=== PATIENT | female | born 1980 | race Two or more races ===

== ENCOUNTER → 2017-10-25 | Outpatient (CLI) | payer OTHER | LOC: FIMAGING 08:33 | PROVIDERS: ATTEND Orthopaedic Surgery Sports Medicine | DX: M50.10 Cervical disc disorder with radiculopathy, unspecified cervical region (principal); M50.30 Other cervical disc degeneration, unspecified cervical region ==

== ENCOUNTER → 2017-12-17 | Outpatient (CLI) | payer OTHER | LOC: FIMAGING 08:26 | PROVIDERS: ATTEND Orthopaedic Surgery Sports Medicine | DX: M25.561 Pain in right knee (principal) ==

== ENCOUNTER 2018-01-04 12:02 | Day surgery (SDC) | payer OTHER ==
[2018-01-04] MEDS ORDERED: IOPAMIDOL (ISOVUE-M 300) 15 ML VIAL ONE (13:00)
[2018-01-04] MEDS ORDERED: DEPO METHYLPREDNISOLONE 40 MG/ML SDV ONE (13:00)
[2018-01-04] MEDS ORDERED: BUPIVACAINE 0.5% 30 ML SDV ONE (13:01)
[2018-01-04] MEDS ORDERED: MIDAZOLAM 2 MG/2 ML VIAL IVP PRN (13:29)
[2018-01-04] MEDS ORDERED: fentaNYL 100 MCG/2 ML INJ IVP PRN (13:29)
[2018-01-04] MEDS ORDERED: FLUMAZENIL 0.5 MG/5 ML MDV IVP PRN (13:29)
[2018-01-04] MEDS ORDERED: NALOXONE HCL 0.4 MG/ML INJ IVP PRN (13:29)
[2018-01-04] MEDS ORDERED: NS 1,000 ML IV SCH (13:30)
--- NOTE | 2018-01-04 14:30 | PDPROPOC ---
Sedation Plan of Care Sedation Plan of Care: vital signs stable, mental status noted, patient educated of risks, benefits, alternatives, patient can tolerate sedation ASA Classification: ASA 1 Planned drugs: fentanyl, midazolam Mallampati Score: Class 2 Mallampati Reference Image: Patient passed 3-3-2 rule?: Yes
--- NOTE | 2018-01-04 14:32 | PDGENHP ---
History & Physical Chief Complaint: NECK PAIIN History of Present Illness: NECK PAIN WITH RT ARM RADICULOPATHY. Pertinent Past, Social, Family History: OVARIAN CYSTECTOMY, COLONSCOPY, INGUINAL HERNIA, WISDOM TEETH Relevant Physical Exam: ALL FINGERS INVOVED WITH PAIN,. 09/11 Cardiorespiratory Assessment: RRR, CTA
[2018-01-04] MEDS ORDERED: ONDANSETRON 4 MG/2 ML VIAL IVP PRN (15:24)
--- NOTE | 2018-01-04 15:25 | PDRADPN ---
Radiology Procedure Note Date of Procedure: 01/04/18 Radiologist: Jaon Hodge Anesthesia: IV Sedation Pre-op Diagnosis: NECK PAIN Post-op Diagnosis: SAME Indication: PAIN Procedure: C/S BI Inf/Abcess present in the surg proc area at time of surgery?: No
[2018-01-04] MEDS ORDERED: TRIAMCINOLONE ACETONIDE 200 MG/5 ML MDV IM ONE (15:27)
[2018-01-04 16:52] VITALS: BP 92/74
== END 2018-01-04 16:43 | disposition home or self-care (01) ==
LOC: FIMAGING 12:02
PROVIDERS: ATTEND Physical Medicine & Rehabilitation
PROC: 3E0U33Z Introduction of Anti-inflammatory into Joints, Percutaneous Approach (ICD-10-PCS; principal; 2018-01-04 15:37)
PROC: 3E0S33Z Introduction of Anti-inflammatory into Epidural Space, Percutaneous Approach (ICD-10-PCS; principal; 2018-01-04 15:37)
PROC: 3E0S3BZ Introduction of Anesthetic Agent into Epidural Space, Percutaneous Approach (ICD-10-PCS; principal; 2018-01-04 15:37)
DX: M54.12 Radiculopathy, cervical region (principal)
CPT/HCPCS: J1030; J2250; J2310; J3010; J3301; Q9967

== ENCOUNTER 2018-04-06 05:26 | Observation (INO) | payer OTHER ==
[2018-04-06] MEDS ORDERED: NS 1,000 ML IV ONE ×2 (05:28→05:46)
--- NOTE | 2018-04-06 05:32 | EDPHY ---
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 Lightheaded. Palpitations, Patient states that she has been feeling somewhat unwell for the past week however for the past few hours she has had increasing shortness of breath, fatigued, lightheaded. Palptiations . Denies any emergency room tachycardic in the 161 to 170s, hypertensive, tachypneic, labored breathing somewhat in distress. She was placed into ER room 3. She gave consent for treatment and registration. Upon evaluation ER room 3 she is tachypneic, in the 30s, tachycardic in the 160s , and hypertensive 180s. No history of panic or anxiety. Denies chest pain. Does states she can't catch her breath. Appears anxious. Somewhat hyperventilating. Complains of tingling in her fingers bilaterally. Past Medical History: Hyperlipidemia Past Surgical History: No recent surgery Social History: Denies drugs alcohol tobacco. 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 Family History: Noncontributory ROS REVIEW OF SYSTEMS: 10 Systems were reviewed and negative with the exception of the elements mentioned in the history of present illness. Exam Constitutional hyperventilating, triage nursing summary reviewed, vital signs reviewed, awake/alert. Tachycardic, hyperventilating, tachypneic. Hypertensive. Eyes normal conjunctivae and sclera, EOMI, PERRLA. HENT normal inspection, atraumatic, moist mucus membranes, no epistaxis, neck supple/ no meningismus, no raccoon eyes. Respiratory clear to auscultation bilaterally, normal breath sounds, no respiratory distress, no wheezing. Cardiovascular tachycardia regular rhythm, no murmur, no edema, distal pulses normal. Gastrointestinal soft, non-tender, no rebound, no guarding, normal bowel sounds, no distension, no pulsatile mass. Genitourinary no CVA tenderness. Musculoskeletal no midline vertebral tenderness, full range of motion, no calf swelling, no tenderness of extremities, no meningismus, good pulses, neurovascularly intact. Skin pink, warm, & dry, no rash, skin atraumatic. Neurologic awake, alert and oriented x 3, AAOx3, moves all 4 extremities equally, motor intact, sensory intact, CN II-XII intact, normal cerebellar, normal vision, normal speech. Psychiatric normal mood/affect. Heme/Lymph/Immune no lymphadenopathy. Differential Diagnosis: Includes but is not limited to in a particular order pulmonary embolism, pneumonia, SVT, viral illness, URI, pneumothorax, ACS, cardiac arrhythmia, anxiety attack, panic attack Medical Decision Making: Plan for this patient IV establishment with IV fluid bolus 2 L, pvc monitor, EKG, troponin, D-dimer, chest x-ray Re-evaluation: EKG interpretation by me on record in [facility] system. Impression time of EKG 5:30 a.m. Sinus tach 103 LVH. T-wave abnormality to [address] elevation. ED x-ray chest one view: Negative for acute cardiopulmonary disease. 0600AM: Patient re-evaluated feeling much better after 1 mg IV Ativan. D-dimer negative. Trop negative. 0610: Patient getting IV fluids on pvc monitor. Heart rate in the 80s. Blood pressure 155/115. 0659: Plan for this patient is to be admitted. I have ordered an echocardiogram, TSH. Dr. Garrett has been consulted for admission. Patient re-evaluated 7:00 a.m. Still complains that she does not feel well. Is not noted that she is hypertensive 160/111. Patient agrees on admission. Admit to PCU. Echo ordered TSH ordered Dr. Garrett consult for admission. Source: Patient - Medical/Surgical History Hx Diabetes: No - Social History Smoking Status: Never smoked Constitutional: Initial Vital Signs O2 Sat (%) 100 04/06/18 05:28 O2 Delivery Mode Room Air O2 (L/minute) 2 Allergies/Adverse Reactions: azithromycin Allergy (Verified 04/06/18 05:38) Rash doxycycline Allergy (Unverified 04/06/18 05:38) Other-Enter Comments Home Medications: Medication Instructions Recorded Calcium 1,000 mg PO DAILY 01/03/18 Fish Oil 1,360 mg Softgel 1,400 mg PO DAILY 01/03/18 1 tab PO DAILY 01/03/18 Red Yeast Rice 1 tab PO DAILY 01/03/18 Tylenol 1,000 mg PO PRN PRN 01/03/18 Vitamin B Complex 1 tab PO DAILY 01/03/18 Vitamin D3 5,000 iunits PO DAILY 01/03/18 Zofran 4 mg PO PRN PRN 01/03/18 Medical Decision Making - Data Points Laboratory Results: Laboratory Results 04/06/18 05:32 04/06/18 05:32 04/06/18 04/06/18 04/06/18 05:38 05:32 05:32 WBC RBC Hgb Hct MCV MCH MCHC RDW Plt Count MPV Neut % (Auto) Lymph % (Auto) Ceiba % (Auto) Eos % (Auto) Baso % (Auto) Nucleat RBC Rel Count Absolute Neuts (auto) Absolute Lymphs (auto) Absolute Monos (auto) Absolute Eos (auto) Absolute Basos (auto) Absolute Nucleated RBC Immature Gran % Seg Neutrophils % Band Neutrophils % Lymphocytes % Monocytes % Eosinophils % Basophils % Metamyelocytes % Myelocytes % Promyelocytes % Blast Cells % Immature Gran # Absolute Seg Neuts Absolute Band Neuts Absolute Lymphocytes Absolute Monocytes Absolute Eosinophils Absolute Basophils Absolute Metamyelocyte Absolute Myelocytes Absolute Promyelocytes Absolute Plasma Cells Differential Comment RBC/WBC/PLT Morphology Absolute Blast Cells Plasma Cells % Platelet Estimate PT INR APTT D-Dimer Sodium Potassium Chloride Carbon Dioxide Anion Gap BUN Creatinine Estimated GFR Glucose Calcium Magnesium Total Bilirubin Conjugated Bilirubin Unconjugated Bilirubin AST ALT Alkaline Phosphatase POC Troponin I 0.01 ng/mL ng/mL (0.00-0.08) NT-Pro-B Natriuret Pep Total Protein Albumin Lipase TSH Pending Beta HCG, Qual NEGATIVE 04/06/18 04/06/18 04/06/18 05:32 05:32 05:32 WBC 11.52 10^3/uL H 10^3/uL (3.80-9.50) RBC 5.11 10^6/uL 10^6/uL (4.18-5.33) Hgb 16.3 g/dL g/dL (12.6-16.3) Hct 45.1 % % (38.0-47.0) MCV 88.3 fL fL (81.5-99.8) MCH 31.9 pg pg (27.9-34.1) MCHC 36.1 g/dL g/dL (32.4-36.7) RDW 12.6 % % (11.5-15.2) Plt Count 335 10^3/uL 10^3/uL (150-400) MPV 9.3 fL fL (8.7-11.7) Neut % (Auto) Not Reported Lymph % (Auto) Not Reported Ceiba % (Auto) Not Reported Eos % (Auto) Not Reported Baso % (Auto) Not Reported Nucleat RBC Rel Count Not Reported Absolute Neuts (auto) Not Reported Absolute Lymphs (auto) Not Reported Absolute Monos (auto) Not Reported Absolute Eos (auto) Not Reported Absolute Basos (auto) Not Reported Absolute Nucleated RBC Not Reported Immature Gran % Not Reported Seg Neutrophils % 51.0 % % Band Neutrophils % 0.0 % % Lymphocytes % 40.0 % % Monocytes % 9.0 % % Eosinophils % 0.0 % % Basophils % 0.0 % % Metamyelocytes % 0.0 % % Myelocytes % 0.0 % % Promyelocytes % 0.0 % % Blast Cells % 0.0 % % Immature Gran # Not Reported Absolute Seg Neuts 5.88 10^3/uL 10^3/uL (1.70-6.50) Absolute Band Neuts 0.00 10^3/uL 10^3/uL (0.00-0.70) Absolute Lymphocytes 4.61 10^3/uL H 10^3/uL (1.00-3.00) Absolute Monocytes 1.04 10^3/uL H 10^3/uL (0.30-0.80) Absolute Eosinophils 0.00 10^3/uL L 10^3/uL (0.03-0.40) Absolute Basophils 0.00 10^3/uL L 10^3/uL (0.02-0.10) Absolute Metamyelocyte 0.00 10^3/mL 10^3/mL (0.00-0.00) Absolute Myelocytes 0.00 10^3/mL 10^3/mL (0.00-0.00) Absolute Promyelocytes 0.00 10^3/uL 10^3/uL (0.00-0.00) Absolute Plasma Cells 0.00 10^3/uL 10^3/uL (0.00-0.00) Differential Comment RBC/WBC/PLT Morphology NORMAL (NORMAL) Absolute Blast Cells 0.00 10^3/uL 10^3/uL (0.00-0.00) Plasma Cells % 0.0 % % Platelet Estimate ADEQUATE (ADEQ) PT 11.9 SEC L SEC (12.0-15.0) INR 0.86 (0.83-1.16) APTT 26.3 SEC SEC (23.0-38.0) D-Dimer 0.41 ug/mLFEU ug/mLFEU (0.00-0.50) Sodium 138 mEq/L mEq/L (135-145) Potassium 3.6 mEq/L mEq/L (3.5-5.2) Chloride 105 mEq/L mEq/L (97-110) Carbon Dioxide 22 mEq/l mEq/l (22-31) Anion Gap 11 mEq/L mEq/L (6-14) BUN 11 mg/dL mg/dL (7-23) Creatinine 0.8 mg/dL mg/dL (0.6-1.0) Estimated GFR > 60 Glucose 103 mg/dL H mg/dL (70-100) Calcium 9.5 mg/dL mg/dL (8.5-10.4) Magnesium 2.0 mg/dL mg/dL (1.6-2.3) Total Bilirubin 0.4 mg/dL mg/dL (0.1-1.4) Conjugated Bilirubin 0.2 mg/dL mg/dL (0.0-0.5) Unconjugated Bilirubin 0.2 mg/dL mg/dL (0.0-1.1) AST 23 IU/L IU/L (14-46) ALT 25 IU/L IU/L (9-52) Alkaline Phosphatase 78 IU/L IU/L (38-126) POC Troponin I NT-Pro-B Natriuret Pep < 11 pg/mL pg/mL (0-125) Total Protein 8.1 g/dL g/dL (6.3-8.2) Albumin 4.7 g/dL g/dL (3.5-5.0) Lipase 254 IU/L IU/L (23-300) TSH Beta HCG, Qual Medications Given: Discontinued Medications Sodium Chloride (Ns) 1,000 mls @ 0 mls/hr IV EDNOW ONE; Wide Open PRN Reason: Protocol Stop: 04/06/18 05:29 Last Admin: 04/06/18 05:37 Dose: 1,000 mls Sodium Chloride (Ns) 1,000 mls @ 0 mls/hr IV EDNOW ONE; Wide Open PRN Reason: Protocol Stop: 04/06/18 05:47 Last Admin: 04/06/18 05:47 Dose: 1,000 mls Lorazepam (Ativan Injection) 1 mg IVP EDNOW ONE Stop: 04/06/18 05:37 Last Admin: 04/06/18 05:47 Dose: 1 mg Ondansetron HCl (Zofran) 4 mg IVP EDNOW ONE Stop: 04/06/18 06:35 Last Admin: 04/06/18 06:36 Dose: 4 mg Point of Care Test Results: Chemistry 04/06/18 05:38 POC Troponin I 0.01 ng/mL ng/mL (0.00-0.08) Departure - Departure Disposition: [facility] Acute Clinical Impression: Shortness of breath, Hypertension, Tachycardia Condition: Fair
[2018-04-06] MEDS ORDERED: LORazepam 2 MG/ML INJ ONE (05:34)
[2018-04-06] MEDS ORDERED: LORazepam 2 MG/ML INJ IVP ONE (05:36)
[2018-04-06 05:42] LABS: PLATELET COUNT 335 10^3/uL (150-400)
[2018-04-06 05:50] LABS: INR 0.86 (0.83-1.16); PROTIME(PATIENT) 11.9 SEC (12.0-15.0)
[2018-04-06] MEDS ORDERED: ONDANSETRON 4 MG/2 ML VIAL IVP ONE (06:34)
[2018-04-06] MEDS ORDERED: ONDANSETRON 4 MG/2 ML VIAL ONE (06:34)
[2018-04-06] MEDS ORDERED: LORazepam 2 MG/ML INJ IVP PRN (07:06)
[2018-04-06] MEDS ORDERED: FAMOTIDINE 20 MG TAB PO ONE (07:06)
[2018-04-06] MEDS ORDERED: ONDANSETRON DISINTEGRATING 4 MG TAB PO PRN (07:09)
--- NOTE | 2018-04-06 07:50 | GHP ---
DATE OF ADMISSION: 04/06/2018 CHIEF COMPLAINT: Shortness of breath, tachycardia. HISTORY OF PRESENT ILLNESS: A 37-year-old female with no significant past medical history presented to the ER with shortness of breath. 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 She became so winded that she had to sit down in a marisol r here in the emergency room. For the past week she has felt dizzy with intermittent lightheadedness and palpitations. Very exhausted to the point where she could pass out the minute she hit the pillow . She notes over the last 2-3 days that the lightheadedness has been constant. Her blood pressures were elevated here in the ER, 180/150 and associated with that was nausea and tight squeezing chest p ressure substernally. There was no radiation. Denies infectious symptoms including fevers, chills, or sweats. No nausea, vomiting, or diarrhea. O f note, in February had a heavy period lasting a month, but saw her cloth calender and was provided a p rogesterone taper. She has not had a heavy cycle this month. No new medication. She is not taking any caffeine supplementations. REVIEW OF SYSTEMS: I completed a 10-point review of system and is negative except as noted HPI. PAST MEDICAL HISTORY: Cervical stenosis, hyperlipidemia. PAST SURGICAL HISTORY: Bilateral robotic ovarian cystectomy, hernia repair as a child. FAMILY HISTORY: Mother with stent at age 71, hypertension. Father with Graves disease, prostate can cer. MEDICATIONS: Zofran, vitamin D, vitamin B, Tylenol, red yeast rice, vitamin, fish oil. calc ium. ALLERGIES: Azithromycin, doxycycline. PHYSICAL EXAMINATION: VITAL SIGNS: Temperature 36.7, blood pressure initially 181/150, heart rate i n the 160s, now is 76, blood pressure now 140/90. GENERAL: Lying in bed, fatigued, mildly pale, no acute distress. HEENT: PERRLA. Moist mucous membranes. CARDIOVASCULAR: Regularly irregular, no mu rmur. LUNGS: Clear. No crackles or wheezing. ABDOMEN: Soft, nontender. : No suprapubic or CV A tenderness. SKIN: Warm and dry. NEURO: 2 through 12 intact. PSYCH: Alert and oriented x3. LABORATORY DATA: 1. WBC 138, potassium 3.6, chloride 105 carbon dioxide 22, anion gap 11, creatinine 0.8, glucose 103 , calcium 9.5. LFTs within normal. BNP 11. Troponin 0.01. Lipase negative. Negative . D-dimer is negative. WBC 11, hemoglobin 16, hematocrit 45, platelets are 335. 2. Chest x-ray is personally reviewed by me. No opacity or effusion. 3. EKG personally reviewed by me. LVH, biphasic T-waves anterior leads which resolved on repeat EKG . T-wave inversions in leads 3. ASSESSMENT AND PLAN: 1. Tachyarrhythmia: Has been symptomatic for the past week. We will monitor in the PCU on telemetr y. Check a TSH. Cycle troponins. Has a negative D-dimer. Obtain an echocardiogram and cardiology consult. 2. Shortness of breath: This is in the setting of tachycardia. Chest x-ray clear. No infectious s ymptoms. Symptoms resolved now. 3. Mild leukocytosis: Stress reaction. We will hydrate and repeat. 4. Deep venous thrombosis prophylaxis. Low risk, ambulatory. 5. Diet: Regular. DISPOSITION: Warrants observation admission in the PCU for telemetry, echocardiogram and Cardiology consult. /[id number]/MODL
--- NOTE | 2018-04-06 07:51 | CPEKG ---
Test Reason : OPEN Blood Pressure : / mmHG Vent. Rate : 087 BPM Atrial Rate : 085 BPM P-R Int : 155 ms QRS Dur : 094 ms QT Int : 367 ms P-R-T Axes : 028 010 -19 degrees QTc Int : 442 ms Sinus rhythm Confirmed by Jose Caal ([id number]) on 04/06/2018 7:51:00 AM Referred By: Confirmed By:Jose Caal
--- NOTE | 2018-04-06 07:51 | CPEKG ---
Test Reason : OPEN Blood Pressure : / mmHG Vent. Rate : 103 BPM Atrial Rate : 104 BPM P-R Int : 163 ms QRS Dur : 100 ms QT Int : 354 ms P-R-T Axes : 034 012 -18 degrees QTc Int : 464 ms Sinus tachycardia Left atrial enlargement Left ventricular hypertrophy Borderline T abnormalities, inferior leads Confirmed by Jose Caal ([id number]) on 04/06/2018 7:50:59 AM Referred By: Confirmed By:Jose Caal
--- NOTE | 2018-04-06 08:27 | ECHO ---
[email or web address] [address] Main: [phone] Fax: [email or web address] Echocardiogram Name: HASMUKH PINTO MR#: [id number] Study Date: 04/06/2018 Study Time: 07:16 AM Date of : 1980 Age: 37 year(s) Height: 167.6 cm (66 in.) Weight: 81.65 kg (180 lb.) BSA: 1.91 m2 Gender: Female Examination: Echo Indication: Tachycardia, HTN Crisis, Chest Pain Image Quality: Contrast: Requested by: Jose Guillen BP: 140 mmHg/59 mmHg Heart Rate: Rhythm: Sinus tachycardia Indication: Tachycardia, HTN Crisis, Chest Pain 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 No LV hypertrophy. Normal global systolic LV function. EF is 60 %. No regional wall motion abnormality. Normal size right ventricle. The left atrium is normal in size. The right atrium is normal in size. There is no mitral valve regurgitation. The aortic valve is normal in appearance and function. The aortic valve is tri-leaflet. The tricuspid valve is normal in appearance and function. There is no pulmonic regurgitation seen. The blood pressure was elevated in the 200's upon admission. The heart rated was in the 150's range with some chest pain. . Measurements: Chambers Valvular Assessment AV/MV Valvular Assessment TV/PV Normal Normal Normal Name Value Range Name Value Range Name Value Range Ao Ameena (MM): 2.9 cm (2.2 cm-3.7 AV Vmax: 1.32 m/s (1 m/s-1.7 TR Vmax: 2.21 mm/s ( - ) cm) m/s) TR PGmax: 20 mmHg ( - ) IVSd (2D): 0.7 cm (0.6 cm-1.1 AV maxP mmHg ( - ) syst. PAP: 25 mmHg ( - ) cm) LVOT Vmax: 0.89 m/s (0.7 m/s-1.1 PV Vmax: 0.92 m/s (0.6 m/s-0.9 LVDd (2D): 4.3 cm (3.9 cm-5.3 m/s) m/s) cm) MV E Vmax: 0.76 m/s ( - ) PV PGmax: 3 mmHg ( - ) LVDs (2D): 2.9 cm (2.1 cm-4 MV A Vmax: 0.60 m/s ( - ) cm) MV E/A: 1.27 ( - ) LVPWd (2D): 0.9 cm ( - ) LVEF (2D): 60 (>=54 %) Patient: HASMUKH PINTO Study Date: 04/06/2018 Page 1 of 2 07:16 AM Continued Measurements: Chambers Valvular Assessment AV/MV Valvular Assessment TV/PV Name Value Name Value Name Value LADs Lon.4 cm MV E/E' Septal: 14.10 CVP (est.): 5 mmHg LA Area: 12.8 cm2 MV E/E' Lateral: 9.20 Findings: Left Ventricle: Normal size left ventricle. No LV hypertrophy. Normal global systolic LV function. EF is 60 %. No regional wall motion abnormality. Diastolic dysfunction is present. . Right Ventricle: Normal size right ventricle. Normal RV function. Left Atrium: The left atrium is normal in size. Right Atrium: The right atrium is normal in size. Mitral Valve: The mitral valve is normal in appearance and function. There is no mitral valve regurgitation. Aortic Valve: The aortic valve is normal in appearance and function. The aortic valve is tri-leaflet. There is no aortic valve regurgitation. No aortic valve stenosis is present. Tricuspid Valve: The tricuspid valve is normal in appearance and function. Pulmonic Valve: The pulmonic valve is normal in appearance and function. There is no pulmonic regurgitation seen. Aorta: The aorta is normal. Exam Comments: The blood pressure was elevated in the 200's upon admission. The heart rated was in the 150's range with some chest pain. . (No Signature Object) Patient: HASMUKH PINTO Study Date: 04/06/2018 Page 2 of 2 07:16 AM [id number]
--- NOTE | 2018-04-06 12:52 | PDCARCONS ---
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 Given the severity of the symptoms, she had blood pressure assessed, and notable elevation was present. Tachycardia was also noted. Patient was seen in the ER, whereupon labs and ECG were obtained. Mild WBC elevation was noted, but no elevation to d-dimer, troponin, or BNP. No clear etiology for the symptoms was noted. Cardiology was consulted after echocardiogram was obtained. Today, the patient is still feeling "off" with awareness of palpitations (which appear to be PACs by correlation to symptom and telemetry review). Echocardiogram without odette pathology noted. Normal systolic function, normal wall motion, and no valve pathology were noted. According to the patient, symptoms have been noted for about 1 to 1.5 weeks, with more significant progressive noted last night. No new medications. No prescribed cardiovascular therapies. The noted hypertension is "new" to the patient. Beta HCG was negative. Outside of that which was mentioned above, remainder of the 12 point review of systems was unremarkable History Information - Allergies/Home Medication List Allergies/Adverse Reactions: azithromycin Allergy (Verified 04/06/18 05:38) Rash doxycycline Allergy (Unverified 04/06/18 05:38) Other-Enter Comments Home Medications: Acetaminophen [Tylenol ES 500 mg (*)] 1,000 mg PO Q6HRS PRN 01/03/18 [Last Taken 01/03/18] Calcium Carbonate [Oyster Shell Calcium 500 mg (*)] 1,000 mg PO DAILY 01/03/18 [ Last Taken 01/02/18] Cholecalciferol Vit D3 [Vitamin D3 (*)] 5,000 units PO DAILY 01/03/18 [Last Taken 01/02/18] Herbals/Supplements -Info Only 1 ea PO DAILY 01/03/18 [Last Taken 01/02/18] [place]-3 Fatty Acids [Fish Oil 1000 mg (*)] 1,000 mg PO DAILY 01/03/18 [Last Taken 01/02/18] Ondansetron Odt [Zofran Odt 4 mg (*)] 4 mg PO Q4HRS PRN 01/03/18 [Last Taken Unknown] Vit27&Calcium/Iron/FA [ Rx 1 Tablet (RX)] 1 each PO DAILY 01/03 [Last Taken 01/02/18] Vitamin B Complex [Vitamin B Complex (OTC)] 1 each PO DAILY 01/03/18 [Last Taken 01/02/18] I have personally reviewed and updated: family history, medical history, social history, surgical history Past Medical History: - Past Medical History no pertinent PMH - Surgical History 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 surgical 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: 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 - Family History Positive for: hypertension Additional family history: Graves and prostate cancer - Social History Smoking Status: Never smoked Alcohol Use: None Drug Use: None Cardiac History - Cardiac History Timing/Duration: Weeks Severity: moderate Severity Scale: 7 Location: substernal Activities at Onset: activity Modifying Factors: improves with: lying down, rest Associated Symptoms: malaise, shortness of breath, weakness Physical Exam Physical Exam: Temp Pulse Resp BP Pulse Ox 36.7 C 76 18 137/87 H 98 04/06/18 08:28 04/06/18 11:49 04/06/18 11:49 04/06/18 11:49 04/06/18 11:49 Constitutional: no apparent distress, appears nourished, not in pain Eyes: PERRL, EOMI Ears, Nose, Mouth, Throat: moist mucous membranes Cardiovascular: regular rate and rhythym, pulses symmetric bilaterally, tachycardia, No JVD, No edema Peripheral Pulses: 2+: dorsalis-pedis (R), dorsalis-pedis (L) Respiratory: no respiratory distress, no rales or rhonchi, clear to auscultation Gastrointestinal: normoactive bowel sounds Skin: warm, No rash Musculoskeletal: full muscle strength, no muscle tenderness Neurologic: AAOx3, sensation intact bilaterally Psychiatric: interacting appropriately, not anxious, not encephalopathic Lab and Imaging 04/06/18 05:32 04/06/18 05:32 WBC 11.52 10^3/uL (3.80-9.50) H 04/06/18 05:32 RBC 5.11 10^6/uL (4.18-5.33) 04/06/18 05:32 Hgb 16.3 g/dL (12.6-16.3) 04/06/18 05:32 Hct 45.1 % (38.0-47.0) 04/06/18 05:32 MCV 88.3 fL (81.5-99.8) 04/06/18 05:32 MCH 31.9 pg (27.9-34.1) 04/06/18 05:32 MCHC 36.1 g/dL (32.4-36.7) 04/06/18 05:32 RDW 12.6 % (11.5-15.2) 04/06/18 05:32 Plt Count 335 10^3/uL (150-400) 04/06/18 05:32 MPV 9.3 fL (8.7-11.7) 04/06/18 05:32 Neut % (Auto) Not Reported 04/06/18 05:32 Lymph % (Auto) Not Reported 04/06/18 05:32 [place] % (Auto) Not Reported 04/06/18 05:32 Eos % (Auto) Not Reported 04/06/18 05:32 Baso % (Auto) Not Reported 04/06/18 05:32 Nucleat RBC Rel Count Not Reported 04/06/18 05:32 Absolute Neuts (auto) Not Reported 04/06/18 05:32 Absolute Lymphs (auto) Not Reported 04/06/18 05:32 Absolute Monos (auto) Not Reported 04/06/18 05:32 Absolute Eos (auto) Not Reported 04/06/18 05:32 Absolute Basos (auto) Not Reported 04/06/18 05:32 Absolute Nucleated RBC Not Reported 04/06/18 05:32 Immature Gran % Not Reported 04/06/18 05:32 Seg Neutrophils % 51.0 % 04/06/18 05:32 Band Neutrophils % 0.0 % 04/06/18 05:32 Lymphocytes % 40.0 % 04/06/18 05:32 Monocytes % 9.0 % 04/06/18 05:32 Eosinophils % 0.0 % 04/06/18 05:32 Basophils % 0.0 % 04/06/18 05:32 Metamyelocytes % 0.0 % 04/06/18 05:32 Myelocytes % 0.0 % 04/06/18 05:32 Promyelocytes % 0.0 % 04/06/18 05:32 Blast Cells % 0.0 % 04/06/18 05:32 Immature Gran # Not Reported 04/06/18 05:32 Absolute Seg Neuts 5.88 10^3/uL (1.70-6.50) 04/06/18 05:32 Absolute Band Neuts 0.00 10^3/uL (0.00-0.70) 04/06/18 05:32 Absolute Lymphocytes 4.61 10^3/uL (1.00-3.00) H 04/06/18 05:32 Absolute Monocytes 1.04 10^3/uL (0.30-0.80) H 04/06/18 05:32 Absolute Eosinophils 0.00 10^3/uL (0.03-0.40) L 04/06/18 05:32 Absolute Basophils 0.00 10^3/uL (0.02-0.10) L 04/06/18 05:32 Absolute Metamyelocyte 0.00 10^3/mL (0.00-0.00) 04/06/18 05:32 Absolute Myelocytes 0.00 10^3/mL (0.00-0.00) 04/06/18 05:32 Absolute Promyelocytes 0.00 10^3/uL (0.00-0.00) 04/06/18 05:32 Absolute Plasma Cells 0.00 10^3/uL (0.00-0.00) 04/06/18 05:32 Differential Comment 04/06/18 05:32 RBC/WBC/PLT Morphology NORMAL (NORMAL) 04/06/18 05:32 Absolute Blast Cells 0.00 10^3/uL (0.00-0.00) 04/06/18 05:32 Plasma Cells % 0.0 % 04/06/18 05:32 Platelet Estimate ADEQUATE (ADEQ) 04/06/18 05:32 PT 11.9 SEC (12.0-15.0) L 04/06/18 05:32 INR 0.86 (0.83-1.16) 04/06/18 05:32 APTT 26.3 SEC (23.0-38.0) 04/06/18 05:32 D-Dimer 0.41 ug/mLFEU (0.00-0.50) 04/06/18 05:32 Sodium 138 mEq/L (135-145) 04/06/18 05:32 Potassium 3.6 mEq/L (3.5-5.2) 04/06/18 05:32 Chloride 105 mEq/L (97-110) 04/06/18 05:32 Carbon Dioxide 22 mEq/l (22-31) 04/06/18 05:32 Anion Gap 11 mEq/L (6-14) 04/06/18 05:32 BUN 11 mg/dL (7-23) 04/06/18 05:32 Creatinine 0.8 mg/dL (0.6-1.0) 04/06/18 05:32 Estimated GFR > 60 04/06/18 05:32 Glucose 103 mg/dL (70-100) H 04/06/18 05:32 Calcium 9.5 mg/dL (8.5-10.4) 04/06/18 05:32 Magnesium 2.0 mg/dL (1.6-2.3) 04/06/18 05:32 Total Bilirubin 0.4 mg/dL (0.1-1.4) 04/06/18 05:32 Conjugated Bilirubin 0.2 mg/dL (0.0-0.5) 04/06/18 05:32 Unconjugated Bilirubin 0.2 mg/dL (0.0-1.1) 04/06/18 05:32 AST 23 IU/L (14-46) 04/06/18 05:32 ALT 25 IU/L (9-52) 04/06/18 05:32 Alkaline Phosphatase 78 IU/L (38-126) 04/06/18 05:32 POC Troponin I 0.01 ng/mL (0.00-0.08) 04/06/18 05:38 NT-Pro-B Natriuret Pep < 11 pg/mL (0-125) 04/06/18 05:32 Total Protein 8.1 g/dL (6.3-8.2) 04/06/18 05:32 Albumin 4.7 g/dL (3.5-5.0) 04/06/18 05:32 Lipase 254 IU/L (23-300) 04/06/18 05:32 TSH 2.980 uIU/mL (0.465-4.680) 04/06/18 05:32 Beta HCG, Qual NEGATIVE 04/06/18 05:32 Visualized and Interpreted Chest x-ray results: Yes Chest X-ray Interpretation: no infiltrate, normal, normal heart size EKG Interpretation: Positive for: normal sinsus rhythm, NS ST wave abnormalities Telemetry: sinus rhythm/sinus tachycardia Echocardiogram: normal LVEF with normal wall motion A/P Assessment: No clear etiology for the symptoms that have been noted is noted with testing currently performed. Would consider MPI testing given the vague symptoms, however, with elevation to blood pressure and heart rate, would treat these findings prior to subjecting patient to further testing. Would have repeat troponin (only one draw so far), and have repeat ECG with that draw. Consider assessment of cholesterol. Outpatient arrhythmia monitor would also be of use Plan: (1) Repeat troponin with ECG (2) Given elevation to blood pressure with start low dose ACEi therapy (3) Outpatient arrhythmia monitor (4) Would have patient seen by cardiology in outpatient setting in the next week (5) Home assessment of blood pressures (and bring diary to outpatient follow up )
--- NOTE | 2018-04-06 14:45 | ASMTCMCOM ---
CM Note CM Note Notes: Chart reviewed for discharge planning purposes. 37 year old female admitted via ED with sudden onset of dyspnea and general malaise accompanied by elevated blood pressure. No significant past past medical history. Cardiology following. New medication started and follow up with cardiology for monitoring. No needs currently identified CM available should needs arise. Plan: Likely to discharge to home with outpatient follow up. Date Signed: 04/06/2018 02:44 PM Electronically Signed By:Nelida Martin RN
[2018-04-06] MEDS ORDERED: FAMOTIDINE 20 MG TAB PO PRN (16:25)
[2018-04-06] MEDS ORDERED: CALCIUM CARBONATE 500 MG CHEWABLE TAB PO PRN (16:25)
[2018-04-06] MEDS ORDERED: NS 1,000 ML IV SCH (16:30)
[2018-04-06] MEDS: LISINOPRIL 5 MG TAB PO SCH (17:03)
[2018-04-06] MEDS: ACETAMINOPHEN 325 MG TAB PO PRN (17:03)
[2018-04-07] MEDS: ACETAMINOPHEN 325 MG TAB PO PRN (03:23)
[2018-04-07] MEDS ORDERED: NITROGLYCERIN 0.4 MG BTL SL PRN (03:35)
[2018-04-07] MEDS: ONDANSETRON 4 MG/2 ML VIAL IVP PRN ×2 (03:39→15:26)
[2018-04-07] MEDS: LISINOPRIL 5 MG TAB PO SCH (07:55)
[2018-04-07] MEDS ORDERED: CALCIUM CARBONATE 500 MG TAB PO SCH (09:00)
[2018-04-07] MEDS ORDERED: PRENATAL VIT 1 EACH TAB PO SCH (09:00)
[2018-04-07] MEDS ORDERED: CHOLECALCIFEROL VIT D3 1,000 UNITS TAB PO SCH (09:00)
[2018-04-07] MEDS ORDERED: Herbals/Supplements -Info Only PO SCH (09:00)
[2018-04-07] MEDS ORDERED: OMEGA-3 FATTY ACIDS 1,000 MG CAP PO SCH (09:00)
[2018-04-07] MEDS ORDERED: VITAMIN B COMPLEX 1 EA CAP/TAB PO SCH (09:00)
--- NOTE | 2018-04-07 11:05 | PDCARPN ---
Cardiology Progress Note Chief Complaint: Chest pains overnight. Patient continues to feel rather poorly Assessment/Plan: Assessment: 04-07-18 Patient feeling similar to yesterday. Overnight, she had chest discomfort, and this morning, continues to feel "not well". Work up to date without pathology appreciated. All troponins have been within normal limits. Blood pressure is better controlled today (124/93 mm Hg), but heart rates continue to be mildly elevated (~100 bpm). Discussion yesterday about consideration for MPI testing - would not want to put patient on treadmill with elevated blood pressures and heart rates, and given the symptoms that were noted last night, would pursue this testing today. 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 Given the severity of the symptoms, she had blood pressure assessed, and notable elevation was present. Tachycardia was also noted. Patient was seen in the ER, whereupon labs and ECG were obtained. Mild WBC elevation was noted, but no elevation to d-dimer, troponin, or BNP. No clear etiology for the symptoms was noted. Cardiology was consulted after echocardiogram was obtained. Today, the patient is still feeling "off" with awareness of palpitations (which appear to be PACs by correlation to symptom and telemetry review). Echocardiogram without odette pathology noted. Normal systolic function, normal wall motion, and no valve pathology were noted. According to the patient, symptoms have been noted for about 1 to 1.5 weeks, with more significant progressive noted last night. No new medications. No prescribed cardiovascular therapies. The noted hypertension is "new" to the patient. Beta HCG was negative. 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 I would reassess this lab to determine if there is more to this story (along the lines of rheum). Subjective: At present, the patient is feeling fair. No active cardiovascular complaints, but she is not feeling back to normal. Objective: Vital Signs (8 Hrs) Temp Pulse Resp BP Pulse Ox 04/07/18 06:59 36.6 C 84 14 124/93 H 96 04/07/18 04:00 83 130/101 H 04/07/18 03:15 36.4 C 87 16 144/94 H 96 Intake/Output (24 Hrs) 04/06/18 04/07/18 04/08/18 05:59 05:59 05:59 Intake Total 2350 Balance 2350 Intake: Oral (ml) 1350 IV Intake (ml) 1000 Other: Weight 83.5 kg Number of Voids Toilet 1 Result Diagrams: 04/06/18 05:32 04/07/18 03:00 Cardiac Labs: Cardiac Lab Results (72 Hrs) 04/07/18 04/06/18 03:00 14:03 Troponin I < 0.012 < 0.012 Telemetry: sinus tachycardia - Physical Exam Constitutional: WDWN, healthy appearing, no apparent distress Eyes: PERRL, EOMI Ears, Nose, Mouth, Throat: moist mucous membranes Cardiovascular: regular rate and rhythm (tachycardia is noted), no murmurs, no rubs, no gallops Peripheral Pulses: 2+: dorsalis-pedis (R), dorsalis-pedis (L) Respiratory: clear to auscultate bilat, no crackles, no wheezes Gastrointestinal: normoactive bowel sounds Skin: no rashes, no edema Neurologic: AAOx3, CN II-XII grossly intact Psychiatric: cooperative, interactive, following commands ICD10 Worksheet Patient Problems: Problems Problem Status Onset Hypertension Acute Shortness of breath Acute Tachycardia Acute
[2018-04-07] MEDS ORDERED: REGADENOSON 0.4 MG/5 ML SYR IVP ONE (14:18)
--- NOTE | 2018-04-07 15:12 | CPR ---
DATE OF PROCEDURE: 04/07/2018 PROCEDURE: Lexiscan nuclear stress test. INDICATION: The patient is a 37-year-old female who presented to the ER feeling poorly. She was fou nd to be tachycardic and hypertensive. She also had intermittent chest discomfort prior to admission , throughout her hospitalization. DESCRIPTION OF PROCEDURE: Consent was obtained and the patient was placed on continuous telemetry. Her resting EKG revealed normal sinus rhythm with a heart rate of 76 beats per minute. She had infer ior T-wave inversion and T-wave flattening in the anterior and lateral leads. The patient was infuse d with Lexiscan and complained of flushing and shortness of breath. She remained in sinus rhythm thr oughout the study, but did become tachycardic with the infusion. There was no change in her T-wave a bnormalities with the infusion of Lexiscan. In the recovery phase, she was given caffeine with resol ution of her symptoms. Her blood pressure at rest was 120/74 and remained stable throughout the stud y. PLAN: Await nuclear images. /[id number]/MODL
[2018-04-07 17:22] VITALS: BP 125/88
--- NOTE | 2018-04-09 08:42 | CPEKG ---
Test Reason : OPEN Blood Pressure : / mmHG Vent. Rate : 073 BPM Atrial Rate : 074 BPM P-R Int : 152 ms QRS Dur : 096 ms QT Int : 408 ms P-R-T Axes : 040 036 -15 degrees QTc Int : 450 ms Sinus rhythm Nonspecific T abnormalities, anterior leads Confirmed by Cole Kenny ([id number]) on 04/09/2018 8:42:13 AM Referred By: Confirmed By:Cole Kenny
--- NOTE | 2018-04-09 08:49 | CPEKG ---
Test Reason : OPEN Blood Pressure : / mmHG Vent. Rate : 070 BPM Atrial Rate : 072 BPM P-R Int : 155 ms QRS Dur : 095 ms QT Int : 390 ms P-R-T Axes : 037 045 -12 degrees QTc Int : 421 ms Sinus rhythm Nonspecific T abnormalities, anterior leads ST/T wave changes with some degree of resolution Confirmed by Cole Kenny ([id number]) on 04/09/2018 8:49:30 AM Referred By: Confirmed By:Cole Kenny
== END 2018-04-07 17:35 | disposition home or self-care (01) ==
LOC: F2W 08:36
PROVIDERS: ADMIT Internal Medicine; ATTEND Internal Medicine
DX: R06.02 Shortness of breath (principal); I10 Essential (primary) hypertension; R07.89 Other chest pain; R00.0 Tachycardia, unspecified; E86.0 Dehydration
CPT/HCPCS: 71045; 78452; 93005; 93017; 93306; A9500; G0378; 84484-ER; J2060; J2405; J2785

== ENCOUNTER 2018-04-15 16:35 | Emergency (ER) | payer OTHER ==
--- NOTE | 2018-04-15 17:09 | EDPHY ---
H & P Stated Complaint: shortness of breath,palpitaions Time Seen by Provider: 04/15/18 16:46 HPI/ROS: CHIEF COMPLAINT: Dyspnea on exertion, hypertension HISTORY OF PRESENT ILLNESS: This is a 37-year-old female was admitted to the hospital on April 06 after experiencing relatively abrupt onset of dyspnea on exertion as well as significantly elevated blood pressures. At that time she did report about a week of ongoing fatigue, but without fevers, chills, chest pain, cough, or significant shortness of breath. Patient was hospitalized from April 06 to April 07, with blood pressure as high as 180/ 160 and heart rate in the 160s. She remained tachycardic in the low 110's teens throughout much of her hospital stay. Blood pressure also remained elevated with systolics in the 160s and diastolics in the 110s. This was treated with lisinopril which gradually helped control her blood pressure. She had echocardiogram which was largely unremarkable, troponins which were negative x2, Lexiscan which was normal, negative D-dimer, and normal TSH. Patient was discharged home to take lisinopril 5 mg. After discharge she continued to experience fatigue, and dyspnea on exertion. Blood pressure initially was well controlled on lisinopril but has been creeping upwards over the last several days. Today blood pressure was 148/119 at home. Patient has been unable to work or do much in the way of activities around the home secondary to significant dyspnea on exertion. She has occasional chest pain in the left upper chest. Patient denies fevers or chills, sore throat, respiratory symptoms, vomiting, diarrhea, urinary complaints, lightheadedness, syncope, dark or tarry colored stools. REVIEW OF SYSTEMS: A comprehensive 10 system review of systems was reviewed and is otherwise negative aside from elements mentioned in the history of present illness and medical decision making. PAST MEDICAL HISTORY: Bilateral robotic assisted ovarian cyst removal. Not on any hormonal control. SOCIAL HISTORY: Denies smoking, alcohol, illicit drug use, marijuana use. Here with her . No family history of PEs or DVTs. VITAL SIGNS Reviewed by me. 148/119. GENERAL: Well-developed, well-nourished, pleasant. Was visibly short of breath with walking to the room in the emergency department. HEENT: Atraumatic. Eyes: No icterus, no injection. Mouth: moist mucous membranes. No erythema or lesions. Neck: supple with no adenopathy. LUNGS: Clear to auscultation bilaterally, no wheezes, rhonchi or rales. CARDIAC: Regular rate and rhythm, no rubs, murmurs or gallops. ABDOMEN: Soft, nontender, nondistended, bowel sounds normal. BACK: No CVA tenderness. EXTREMITIES: No trauma. No edema. Range of motion is normal throughout. NEURO: Alert and oriented, grossly nonfocal. SKIN: Warm and dry, no rash. PSYCHIATRIC: Normal mentation, no agitation. - Personal History LMP (Females 10-55): 1-7 Days Ago Current Tetanus Diphtheria and Acellular Pertussis (TDAP): Yes - Medical/Surgical History Hx Asthma: No Hx Chronic Respiratory Disease: No Hx Diabetes: No Hx Cardiac Disease: No Hx Renal Disease: No Hx Cirrhosis: No Hx Alcoholism: No Hx HIV/AIDS: No Hx Splenectomy or Spleen Trauma: No Other PMH: hyperlidemia, endometriosis,hypertension - Social History Smoking Status: Never smoked Constitutional: Initial Vital Signs Temperature (C) 36.7 C 04/15/18 16:43 Heart Rate 96 04/15/18 16:43 Respiratory Rate 14 04/15/18 16:43 Blood Pressure 148/119 H 04/15/18 16:43 O2 Sat (%) 99 04/15/18 16:43 O2 Delivery Mode Room Air Allergies/Adverse Reactions: azithromycin Allergy (Verified 04/15/18 16:41) Rash doxycycline Allergy (Verified 04/15/18 16:41) Other-Enter Comments Home Medications: Medication Instructions Recorded Acetaminophen [Tylenol ES 500 mg 1,000 mg PO Q6HRS PRN 01/03/18 (*)] Calcium Carbonate [Oyster Shell 1,000 mg PO DAILY 01/03/18 Calcium 500 mg (*)] Cholecalciferol Vit D3 [Vitamin D3 5,000 units PO DAILY 01/03/18 (*)] Herbals/Supplements -Info Only 1 ea PO DAILY 01/03/18 [place]-3 Fatty Acids [Fish Oil 1000 1,000 mg PO DAILY 01/03/18 mg (*)] Ondansetron Odt [Zofran Odt 4 mg 4 mg PO Q4HRS PRN 01/03/18 (*)] Vit27&Calcium/Iron/FA 1 each PO DAILY 01/03/18 [] Vitamin B Complex [Vitamin B 1 each PO DAILY 01/03/18 Complex (OTC)] Lisinopril [Zestril 5 mg (*)] 5 mg PO DAILY #30 tab 04/07/18 Medical Decision Making - Diagnostics EKG Interpretation: 12-LEAD EKG: Please see the full report in [facility]. My interpretation: sinus rhythm with nonspecific twi similar to previous] Imaging Results: Impression: 1. No definite pulmonary thromboemboli. 2. No aortic aneurysm or dissection. 3. No acute pulmonary disease. Findings and recommendations discussed with Emergency Department physician, Michelle Hoover M.D., at 1835 hours, on April 15, 2018. Final report concurs with initial preliminary interpretation. A test result has been communicated to a licensed care provider and documented in the [employer] Critical Result system on 04/15/2018 18:37 , Message ID [id number]. 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 She is most concerned regarding the possibility of a pulmonary embolism. Evaluation included neg troponin, normal labs, neg ddimer. EKG with nonspecific TWI, similar to previous. CT scan performed as patient very concerned about persistant SOB> CT Negative for PE Advised to continue monitoring of BP and HR. Labs ordered including DAGOBERTO and labs for pheo. Patient with cardiology appointment in 2 days. Differential Diagnosis: Diff dx considered included PE, pulmonary hypertension, hypertensive urgency or emergency, arrhythmias, pulmonary infectious process, metabolic abnormalities, ACS, anxiety. - Data Points Medications Given: Discontinued Medications Sodium Chloride (Ns) 1,000 mls @ 0 mls/hr IV ONCE ONE; Wide Open PRN Reason: Protocol Stop: 04/15/18 17:49 Last Admin: 04/15/18 18:20 Dose: 1,000 mls Ondansetron HCl (Zofran) 4 mg IVP EDNOW ONE Stop: 04/15/18 18:18 Last Admin: 04/15/18 18:21 Dose: 4 mg Point of Care Test Results: CBC CBC Collection Date 04/15/18 CBC Collection Time 17:19 WBC 10.3 RBC 4.91 HGB 16.2 HCT 44.1 PLT 322 Neut # 6.5 Neut 63.0 LYMPH # 3.3 LYMPH 32.2 Other WBC # 0.5 Other WBC 4.8 MCV 89.8 Chemistry 04/15/18 04/15/18 17:36 17:25 POC Sodium 140 mEq/L mEq/L (135-145) POC Potassium 3.1 mEq/L L mEq/L (3.3-5.0) POC Chloride 106.0 mEq/L mEq/L (97-110) POC Total CO2 25 mEq/L mEq/L (22-31) POC BUN 10 mg/dL mg/dL (7-23) POC Creatinine 1.0 mg/dL mg/dL (0.6-1.0) POC Glucose 97 mg/dL mg/dL (70-100) POC Calcium 9.4 mg/dL mg/dL (8.5-10.4) POC Troponin I 0.01 ng/mL ng/mL (0.00-0.08) D-Dimer D-Dimer Collection Date 04/15/18 D-Dimer Collection Time 17:19 D-Dimer (ng/ml) <100 Urine Collection Date 04/15/18 Collection Time 17:25 HCG Results Negative Departure - Departure Disposition: Home, Routine, Self-Care Clinical Impression: Shortness of breath Hypertension Qualifiers: Hypertension type: unspecified Qualified Code(s): I10 - Essential (primary) hypertension Condition: Good Instructions: Dyspnea (ED), Hypertension (ED) Additional Instructions: No clear cause of your shortness of breath has been identified. Your blood pressure remains elevated. Please continue to monitor your blood pressure and your heart rate. Please follow up on Tuesday as previously scheduled. Return to the emergency department or seek care urgently if you develops significant shortness of breath, chest pain, blood pressure not well controlled with you lisinopril, fainting, persistent tachycardia, or other concern. Referrals: Vikas Sarabia DO [Primary Care Provider] - As per Instructions
[2018-04-15] MEDS ORDERED: NS 1,000 ML IV ONE (17:48)
[2018-04-15] MEDS ORDERED: IOPAMIDOL (ISOVUE 370) 100 ML BTL IV ONE (18:00)
[2018-04-15] MEDS ORDERED: ONDANSETRON 4 MG/2 ML VIAL IVP ONE (18:17)
[2018-04-15 19:27] VITALS: BP 133/101
--- NOTE | 2018-04-15 22:49 | CPEKG ---
Test Reason : OPEN Blood Pressure : / mmHG Vent. Rate : 085 BPM Atrial Rate : 082 BPM P-R Int : 161 ms QRS Dur : 100 ms QT Int : 378 ms P-R-T Axes : 037 -03 -29 degrees QTc Int : 450 ms Sinus rhythm Nonspecific T abnormalities, diffuse leads Confirmed by Michelle Hoover ([id number]) on 04/15/2018 10:48:54 PM Referred By: Confirmed By:Michelle Hoover
== END 2018-04-15 19:25 | disposition home or self-care (01) ==
LOC: CED 16:35
DX: R06.02 Shortness of breath (principal); I10 Essential (primary) hypertension; E78.5 Hyperlipidemia, unspecified; E86.9 Volume depletion, unspecified; Z79.899 Other long term (current) drug therapy
CPT/HCPCS: 71275-PO; 80048-ER; 83835-90; 84484-ER; 96361-ER; 96374-ER; J2405; Q9967

== ENCOUNTER → 2018-06-14 | Outpatient (CLI) | payer OTHER | LOC: FIMAGING 07:22 | PROVIDERS: ATTEND Internal Medicine Cardiovascular Disease | DX: E04.1 Nontoxic single thyroid nodule (principal); I10 Essential (primary) hypertension ==